=== PATIENT | male | born 1990 | race Caucasian/White ===

== ENCOUNTER → 2018-06-15 08:14 | Outpatient (CLI) | payer BC ==
--- NOTE | 2018-06-24 10:38 | EC ---
PATIENT:HARVINDER FRAZIER DATE OF SERVICE: 06/15/18 SEX: M MEDICAL RECORD: [id number] DATE OF : [birth year] [facility] AGE OF PATIENT: 28 ADMISSION DATE: 06/15/18 REFERRING PHYSICIAN: INTERPRETING PHYSICIAN: KIRA CASTANO MD ECHOCARDIOGRAM REPORT ECHO CHARGES 4 ECHO COMPLETE Date: 06/15/18 CLINICAL DIAGNOSIS: CHEST PAIN, DYSPNEA ON EXERTION, FAMILY HX OF CAD ECHOCARDIOGRAPHIC MEASUREMENTS (adult normal given) AC root (d.<3.7cm) 3.3 cm LV Septum d (<1.2 cm> 1.2 cm Valve Excursion 1.0 cm LV Septum (systole) 1.8 cm Left Atria (s.<4.0cm> 3.2 cm LVPW d(<1.2cm) 1.4 cm RV (d.<2.3cm) 3.7 cm LVPW (sytole) 1.5 cm LV diastole(<5.6CM) 4.7 cm MV E-F(>70mm/sec) cm LV systole 3.1 cm LVOT Diameter 2.1 cm MV exc.(>10mm) 1.3 cm Est.ejection fraction (50-75%) % DOPPLER: LVIT cm/sec A 40.0 cm/sec E 92.0 cm/sec LA cm/sec RVSP 24 mmHg LVOT 110 cm/sec AOP1/2T m/s Asc. Ao 139 cm/sec RVOT 65 cm/sec RA cm/sec PA 111 cm/sec AV Gradient Peak 7.76 mmHg AV Mean 3.85 mmHg AV Area 3.4 cm MV Gradient Peak 3.02 mmHg MV Mean 1.36 mmHg MV Area cm COMMENTS: Nozzleman: Karol ALVARADO Rn Child: Shaq Castano TAPE# PACS Pericardial Effusion N DATE OF SERVICE: 06/15/2018 PROCEDURE: Echocardiogram. FINDINGS: 1. Left ventricular chamber size is within normal limits. Left ventricular systolic function is normal. Overall ejection fraction estimated at 60%. 2. Left atrium, right atrium, and right ventricular chamber sizes are within normal limits. 3. Valvular structures have normal structure and motion. ECHOCARDIOGRAM REPORT [id number] HARVINDER FRAZIER 4. Doppler interrogation reveals trace mitral regurgitation, trace tricuspid regurgitation, no other valvular insufficiency or stenosis. Pulmonary systolic pressure is normal estimated at 24 mmHg. 5. No evidence of pericardial effusion or left ventricular thrombus. TRANSINT:[id number] Voice Confirmation ID: [id number] DOCUMENT ID: [id number] KIRA CASTANO MD at 1038 CC: [id number] DICTATION DATE: 06/16/18 1036 [employer] DATA ANALYTICS LEAD: 06/16/18 1058 DEP CLI 06/15/18 [place] [id number] [place] [id number]
--- NOTE | 2018-06-24 10:38 | ST ---
PATIENT:HARVINDER FRAZIER MEDICAL RECORD: [id number] SEX: M LOCATION:[facility] ORDER #: ADMISSION DATE: 06/15/18 AGE OF PATIENT: 28 REFERRING PHYSICIAN: INTERPRETING PHYSICIAN: KIRA HERNANDEZ MD DATE OF SERVICE: 06/15/2018 PROCEDURE: Exercise Stress test. INDICATION: Chest pain. He was exercised on standard Gurwinder protocol for 10 minutes achieving greater than 85% max target heart rate response with no EKG changes, no anginal symptomatology, no dysrhythmia. OVERALL IMPRESSION: Negative for inducible ischemia at adequate cardiac workload. TRANSINT:[id number] Voice Confirmation ID: [id number] DOCUMENT ID: [id number] KIRA HERNANDEZ MD at 1038 CC: [id number] DICTATION DATE: 06/16/18 1035 SHIPPING PROCESSOR: 06/16/18 1108 DEP CLI 06/15/[address] [id number]
== END | disposition home or self-care (01) ==
LOC: D.HCCARDIO 08:14
PROVIDERS: ATTEND Internal Medicine Interventional Cardiology
DX: Z03.89 Encounter for observation for other suspected diseases and conditions ruled out (principal)